=== PATIENT | female | born 1960 | race Caucasian/White ===

== ENCOUNTER 2022-09-28 00:28 | Emergency (ER) | payer MEDICARE, SELFPAY ==
[2022-09-28 01:08] VITALS: BP 148/98; PULSE 99; RESP 18; TEMP 36.8; O2SAT 100
--- NOTE | 2022-09-28 01:39 | PC.NURSE ---
pt up to desk asking where am I at in line? . pt informed unable to provide that information.
--- NOTE | 2022-09-28 03:07 | PC.NURSE ---
pt up to desk asking if she is next in line . pt educated that I am unable to determine that or give out wait times.
--- NOTE | 2022-09-28 03:13 | PC.NURSE ---
pt amb out of ED with steady gait and in no obvious distress.
== END 2022-09-28 03:13 | disposition left against medical advice (07) ==
LOC: ANHED 03:15
PROVIDERS: PCP Internal Medicine
DX: M06.9 Rheumatoid arthritis, unspecified (principal)
CPT/HCPCS: 99199